=== PATIENT | male | born 1935 | race Caucasian/White ===

== ENCOUNTER 2016-09-19 09:54 | Outpatient (CLI) | END 2016-09-19 09:55 | disposition home or self-care (01) | LOC: AMBL 09:54 | PROVIDERS: ATTEND Emergency Medicine | DX: F41.9 Anxiety disorder, unspecified (principal) ==

== ENCOUNTER 2017-01-22 16:10 | Outpatient (CLI) | END 2017-01-22 16:11 | disposition home or self-care (01) | LOC: AMBL 16:10 | PROVIDERS: ATTEND Emergency Medicine | DX: R00.0 Tachycardia, unspecified (principal); Z95.0 Presence of cardiac pacemaker ==

== ENCOUNTER 2023-02-02 00:25 | Observation (INO) ==
--- NOTE | 2023-02-02 01:37 | ED.PDOC ---
General ED Provider: Dr. SHAYLA CERVANTES MD Chief Complaint: Shortness of Air Stated Complaint: CC:l Woke up with a choking episode from sleep. Had some sweat pototoe for dinner last night and this may have cause some reflux. No coughing spell after the choking episode. Check his pulse as he carries a pulse oximetry at bedside and his oxygen sat was 100% but his heart rate was 120. He felt like someone is grabbing his throat and some problem breathing. No chest pain and breathing more normal now. Had CABG in in 1987 but no recent stress test or heart cath. No exertional chest pain. 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 He is concerned that the Lp(a) is a good test for coronary event. Said he is well read on the subject. Time Seen by Provider: 02/02/23 00:54 Mode of Arrival: Walk-In Information Source: Patient Exam Limitations: No limitations Primary Care Provider: GATO FISHER MD Referred to ED by: Other (self) Nursing and Triage Documentation Reviewed and Agree: Yes Review of Systems Review Of Systems Constitutional: Reports No symptoms Eyes: Reports No symptoms Ears, Nose, Mouth, Throat: Denies Ear pain, Mouth swelling, Throat pain or Throat swelling Respiratory: Reports Shortness of Breath; Denies Cough Cardiac: Reports Palpitations; Denies Chest pain or Edema GI: Denies Abdominal pain, Vomiting or Other (Seems like acute eructation or GERD tonight) : Denies Burning Skin: Reports No symptoms Neurological: Reports No symptoms; Denies Headache All Other Systems: Reviewed and Negative [facility] Medical History Tick bite W57.XXXA - Bitten or stung by nonvenomous insect and other nonvenomous arthropods, initial encounter (ICD-10) Dysuria R30.0 - Dysuria (ICD-10) Encounter for Babb catheter removal Z46.6 - Encounter for fitting and adjustment of urinary device (ICD-10) Head injury, acute, without loss of consciousness S09.90XA - Unspecified injury of head, initial encounter (ICD-10) Subdural hematoma 09/29 [place] S06.5X9A - Traumatic subdural hemorrhage with loss of consciousness of unspecified duration, initial encounter (ICD-10) Hypertension I10 - Essential (primary) hypertension (ICD-10) Heart disease I51.9 - Heart disease, unspecified (ICD-10) Elevated cholesterol E78.00 - Pure hypercholesterolemia, unspecified (ICD-10) Family History BROTHER Diabetes 19 CHILD Diabetes Cardiac disease Social History Smoking and tobacco status: Never smoker Alcohol intake: never Substance use type: does not use Stephanie/jain: SIKH Special stephanie needs: No Agree to transfusion: Yes Adopted: No Caregiver/support person: No Foster care: No Household members: none Housing: house Marital status: W / Lives independently: Yes Daycare: no daycare Number of children: 5 Financial difficulty paying for basics: not very hard service: No penitentiary: No Current occupational status: retired History of recent travel: No Sexually active: No Do you think of yourself as: straight/heterosexual Current gender identity: male Seatbelt use: always Helmet use: No Drives intoxicated or rides with intoxicated public transit trolley driver: No Water heater temperature set < 120 degrees: Yes Working smoke detector in home: Yes Fire extinguisher in home: Yes Carbon monoxide detector in home: Yes Surgical History Hx of CABG Z95.1 - Presence of aortocoronary bypass graft (ICD-10) History of cataract surgery Z98.49 - Cataract extraction status, unspecified eye (ICD-10) 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 - Presence of aortocoronary bypass graft (ICD-10) Status post angioplasty of vein Z98.890 - Other specified postprocedural states (ICD-10) Physical Exam Physical Exam Appearance: Reports Well-appearing; Denies Ill-appearing or No pain distress Ill-appearing: None Pain Distress: None Eyes: Reports EOMI ENT: Reports Nose normal and Oropharynx normal Neck: Supple Respiratory: Reports Airway patent, Breath sounds clear and Breath sounds equal; Denies Airway obstructed Cardiovascular: Reports RRR, Pulses normal, No rub and No murmur GI/: Reports Soft, Nontender, No masses, Bowel sounds normal and No Organomegaly; Denies Tender Musculoskeletal: Reports Normal strength, ROM intact, No edema and No calf tenderness Skin: Reports Dry and Normal color Neurological: Reports Sensation intact and Motor intact Psychiatric: Reports Affect appropriate and Mood appropriate Interpretation EKG Interpretation EKG Interpretation By: ED Physician Time of EKG #1: 01:50 Rate: Normal Rhythm: Sinus Ectopy: None [place]: Left Interpretation: New inferior Q waves since July 11, 2022. EKG Comparison: Other (New Q in inferior leads ) Radiology Interpretation Radiology Interpretation By: Radiologist Radiology Results: Negative Exam Interpreted: CXR Physician Notification Case Discussed Physician Notified: Phillip Time of Notification: 02:00 Comments: OK to admit to hospitalist Physician Notified: Bharath Escobedo Time of Notification: 02:45 Comments: Discussed case and admit. Gregg wants to repeat troponin. Still negative on repeat troponin Critical Care Note Critical Care Note Total Critical Care Time (mins): 0 Course Course 02/02/23 05:30 02/02/23 02:05 Orders, Labs, Meds: Lab Review 02/02/23 02/02/23 02/02/23 02:05 03:15 03:30 WBC 5.98 RBC 4.28 L Hgb 14.0 Hct 40.8 L MCV 95.3 H MCH 32.7 H MCHC 34.3 RDW Coeff of Tal 13.6 Plt Count 131 L Immature Gran % (Auto) 0.3 Neut % (Auto) 55.2 Lymph % (Auto) 25.9 [place] % (Auto) 6.7 Eos % (Auto) 11.4 H Baso % (Auto) 0.5 Neut # (Auto) 3.3 Lymph # (Auto) 1.6 [place] # (Auto) 0.4 Eos # (Auto) 0.7 Baso # (Auto) 0.0 Immature Gran # (Auto) 0.0 Sodium 132.7 L Potassium 3.93 Chloride 99.6 Carbon Dioxide 27.2 Anion Gap 9.83 BUN 12.3 Creatinine 0.67 Estimated GFR (MDRD) 112.00 BUN/Creatinine Ratio 18.35 Glucose 99.9 Calcium 9.30 Total Bilirubin 0.97 AST 42.6 ALT 25.5 Alkaline Phosphatase 92.1 Troponin I 0.022 0.026 Total Protein 7.38 Albumin 4.35 Globulin 3.03 Albumin/Globulin Ratio 1.43 SARS CoV-2 RNA Rapid DANICA Negative Orders Category Date Time Status ADMIT OBSERVATION [PLACE PATIENT OBSERVATION] .TO ADMISSION 02/02/23 03:02 Active MEDSURG (MONITORED BED) EKG-(ED ONLY) Stat CARDIO 02/02/23 01:37 Completed ACTIVITY .BR with BRP CARE 02/02/23 03:02 Completed TELEMETRY MONITORING TELE CARE 02/02/23 03:03 Active VITAL SIGNS Q12HR CARE 02/02/23 03:04 Completed VITAL SIGNS Q8HR CARE 02/02/23 03:04 Completed CARDIAC DIET DIETARY 02/02/23 Breakfast Ordered Saline Lock [ED IV/MEDIPORT/POWERPORT] .ONCE EMERGENCY 02/02/23 03:08 Active CBC W/ AUTO DIFF DAILY@0600 LAB 02/02/23 05:30 Completed CBC W/ AUTO DIFF DAILY@0600 LAB 02/03/23 06:00 Ordered CBC W/ AUTO DIFF Stat LAB 02/02/23 02:05 Completed CMP [COMPREHENSIVE METABOLIC PANEL] Stat LAB 02/02/23 02:05 Completed COVID [SARS COV-2 RNA RAPID DANICA] Stat LAB 02/02/23 03:15 Completed MISCELLANEOUS SEND OUT Stat LAB 02/02/23 02:05 Received TROPONIN I Stat LAB 02/02/23 02:05 Completed TROPONIN I Stat LAB 02/02/23 03:30 Completed 0.9 % Sodium Chloride [Saline Flush] Meds 02/02/23 03:08 Active 1 syr IVF PRN PRN Aspirin [Aspirin EC] Meds 02/02/23 07:30 Active 325 mg PO DAILYWM2 RESUSCITATION STATUS Routine OTHERS 02/02/23 03:02 Completed CHEST, 2 VIEWS PA & LAT Stat RADS 02/02/23 01:37 Completed SEST HRT REST/STRESS/ NUC MED Routine RADS 02/02/23 03:09 Ordered PT INPATIENT EVALUATION Routine THERAPIES 02/02/23 03:04 Ordered Medications Generic Name Dose Route Start Last Admin Trade Name Freq PRN Reason Stop Dose Admin Aspirin 325 mg 02/02/23 07:30 Aspirin 325 Mg Tablet.Dr PO DAILYWM2 SANTY Sodium Chloride 1 syr 02/02/23 03:08 0.9% Sodium Chloride 10 Ml Disp.Syrin IVF PRN PRN To flush IV Vital Signs: Temp Pulse Resp BP Pulse Ox 02/02/23 00:32 98.2 F 72 15 142/77 H 96 Initial troponin negative but developed new inferior Q waves. Will admit to hospitalist, after speaking to Dr. Fisher. Discharge Plan Discharge Patient Disposition: PLACED OBSERVATION Discharge Problem: Choking episode occurring at night, Chest pain, precordial Did you review [place] CANDY ROLLER for ALL controlled substances?: Not Applicable ED Provider: SHAYLA CERVANTES Condition: Fair Physician Progress Note: []
--- NOTE | 2023-02-02 02:04 | DI ---
EXAM: FRONTAL AND LATERAL VIEWS OF THE CHEST. HISTORY: Shortness of breath. COMPARISON: Chest radiograph 07/11/2022 FINDINGS: Status post coronary bypass. Stable cardiac pacer with leads at the right atrium right ventricle, generator at the left anterior c hest wall. Normal heart size. Multifocal atherosclerotic calcifications. A few scattered calcified granulomas ar e noted. No acute consolidation. No pleural effusion or pneumothorax. No acute osseous abnormality. IMPRESSION: No acute process.
[2023-02-02 02:06] LABS: BASOPHILS % (AUTO) 0.5 % (0.0-3.0); EOSINOPHILS # (AUTO) 0.7 K/ul (0.0-0.7); EOSINOPHILS % (AUTO) 11.4 % (0.0-7.0); HEMATOCRIT 40.8 % (42.0-52.0); IMMATURE GRANULOCYTE % (AUTO) 0.3 % (0.0-5.0); LYMPHOCYTES # (AUTO) 1.6 K/uL (0.60-3.4); LYMPHOCYTES % (AUTO) 25.9 (10.0-50.0); MEAN CORPUSCULAR HEMOGLOBIN 32.7 pg (27.0-31.0); MEAN CORPUSCULAR HGB CONC 34.3 (31.8-35.4); MEAN CORPUSCULAR VOLUME 95.3 fl (80.0-94.0); MONOCYTES # (AUTO) 0.4 K/uL (0.4-2.0); MONOCYTES % (AUTO) 6.7 (0-10); NEUTROPHILS # (AUTO) 3.3 K/ul (2.0-6.9); NEUTROPHILS % (AUTO) 55.2 % (42.2-75.2); PLATELET COUNT 131 10^3/uL (140-440); RDW COEFFICIENT OF VARIATION 13.6 % (11.6-14.8); RED BLOOD COUNT 4.28 10^6/ul (4.70-6.10); WHITE BLOOD COUNT 5.98 K/ul (4.2-10.2)
[2023-02-02 02:18] LABS: ALANINE AMINOTRANSFERASE 25.5 U/L (0-50); ALBUMIN 4.35 g/dL (3.5-5.0); ALKALINE PHOSPHATASE 92.1 U/L (56-119); ASPARTATE AMINO TRANSFERASE 42.6 U/L (17-59); BILIRUBIN,TOTAL 0.97 mg/dL (0.2-1.3); BLOOD UREA NITROGEN 12.3 mg/dL (9-20); CALCIUM 9.3 mg/dL (8.4-10.2); CARBON DIOXIDE 27.2 mmol/L (22-30.0); CHLORIDE 99.6 mmol/L (98-107); CREATININE 0.67 mg/dL (0.60-1.10); GLUCOSE 99.9 mg/dL (74-106); POTASSIUM 3.93 mmol/L (3.5-5.1); SODIUM 132.7 mmol/L (134.5-145); TOTAL PROTEIN 7.38 g/dL (6.3-8.2)
[2023-02-02 03:35] LABS: SARS COV-2 RNA RAPID NAAT NEGATIVE (NEGATIVE)
[2023-02-02 05:24] VITALS: PULSE 71; RESP 16; BMI 23.1
[2023-02-02 05:27] VITALS: BP 155/73; TEMP 97.9
[2023-02-02 05:39] LABS: BASOPHILS % (AUTO) 0.5 % (0.0-3.0); EOSINOPHILS # (AUTO) 0.6 K/ul (0.0-0.7); EOSINOPHILS % (AUTO) 10.4 % (0.0-7.0); HEMATOCRIT 40.7 % (42.0-52.0); HEMOGLOBIN 14.2 g/dl (14.0-18.0); IMMATURE GRANULOCYTE % (AUTO) 0.2 % (0.0-5.0); LYMPHOCYTES # (AUTO) 1.8 K/uL (0.60-3.4); LYMPHOCYTES % (AUTO) 30.1 (10.0-50.0); MEAN CORPUSCULAR HEMOGLOBIN 33.2 pg (27.0-31.0); MEAN CORPUSCULAR HGB CONC 34.9 (31.8-35.4); MEAN CORPUSCULAR VOLUME 95.1 fl (80.0-94.0); MONOCYTES # (AUTO) 0.4 K/uL (0.4-2.0); MONOCYTES % (AUTO) 6.7 (0-10); NEUTROPHILS # (AUTO) 3.1 K/ul (2.0-6.9); NEUTROPHILS % (AUTO) 52.1 % (42.2-75.2); PLATELET COUNT 128 10^3/uL (140-440); RDW COEFFICIENT OF VARIATION 13.2 % (11.6-14.8); RED BLOOD COUNT 4.28 10^6/ul (4.70-6.10); WHITE BLOOD COUNT 5.94 K/ul (4.2-10.2)
[2023-02-02] MEDS ORDERED: ASPIRIN EC PO SCH (07:30)
[2023-02-02 08:23] LABS: ALANINE AMINOTRANSFERASE 24.6 U/L (0-50); ALBUMIN 4.21 g/dL (3.5-5.0); ALKALINE PHOSPHATASE 84.4 U/L (56-119); ASPARTATE AMINO TRANSFERASE 35.6 U/L (17-59); BILIRUBIN,TOTAL 0.95 mg/dL (0.2-1.3); BLOOD UREA NITROGEN 10.6 mg/dL (9-20); CALCIUM 9.47 mg/dL (8.4-10.2); CARBON DIOXIDE 31.2 mmol/L (22-30.0); CHLORIDE 101.7 mmol/L (98-107); CREATININE 0.65 mg/dL (0.60-1.10); GLUCOSE 95.3 mg/dL (74-106); HDL CHOLESTEROL 49.1 mg/dL (35-60); POTASSIUM 3.84 mmol/L (3.5-5.1); SODIUM 135.8 mmol/L (134.5-145); TOTAL PROTEIN 7.34 g/dL (6.3-8.2); TRIGLYCERIDES 83.4 mg/dL (0-150)
[2023-02-02 08:33] LABS: TROPONIN I 0.027 ng/ml (0.0000-0.120)
--- NOTE | 2023-02-02 10:09 | PCM.SS ---
Provider Provider[facility] HEREDIA[facility] Date Admission Date: 02/02/23 Discharge Date Discharge Date: 02/02/23 Primary Care Physician Primary Care Physician: GATO FISHER MD Chief Complaint Reason For Visit: CHEST PAIN, UNSPECIFIED History of Present Illness History of Present Illness: Admitted 02/02/23 03:31, this 87 year old /WHITE/M presented to the ER with chest pain/choking. Patient reports he has trouble with acid reflux occasionally and ate something that he shouldn't have and experienced coughing and choking on reflux secretions causing his chest to burn. Due to cardiac history, he was admitted to trend troponins and stress test. Upon exam, patient reports he has not had chest pain at all and knows that it was reflux. Does not wish to have a stress test today and plans to follow up with Dr. Katie Fisher Saturday and will schedule something with him outpatient. [facility] Medical History Tick bite W57.XXXA - Bitten or stung by nonvenomous insect and other nonvenomous arthropods, initial encounter (ICD-10) Dysuria R30.0 - Dysuria (ICD-10) Encounter for Babb catheter removal Z46.6 - Encounter for fitting and adjustment of urinary device (ICD-10) Head injury, acute, without loss of consciousness S09.90XA - Unspecified injury of head, initial encounter (ICD-10) Subdural hematoma 09/29 [place] S06.5X9A - Traumatic subdural hemorrhage with loss of consciousness of unspecified duration, initial encounter (ICD-10) Hypertension I10 - Essential (primary) hypertension (ICD-10) Heart disease I51.9 - Heart disease, unspecified (ICD-10) Elevated cholesterol E78.00 - Pure hypercholesterolemia, unspecified (ICD-10) Surgical History Hx of CABG Z95.1 - Presence of aortocoronary bypass graft (ICD-10) History of cataract surgery Z98.49 - Cataract extraction status, unspecified eye (ICD-10) 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 - Presence of aortocoronary bypass graft (ICD-10) Status post angioplasty of vein Z98.890 - Other specified postprocedural states (ICD-10) Family History BROTHER Diabetes 19 CHILD Diabetes Cardiac disease Social History Smoking and tobacco status: Never smoker Alcohol intake: never Substance use type: does not use Stephanie/jew: SABIANISM Special stephanie needs: No Agree to transfusion: Yes Adopted: No Caregiver/support person: No Foster care: No Household members: none Housing: house Marital status: W / Lives independently: Yes Daycare: no daycare Number of children: 5 Financial difficulty paying for basics: not very hard service: No alf: No Current occupational status: retired History of recent travel: No Sexually active: No Do you think of yourself as: straight/heterosexual Current gender identity: male Seatbelt use: always Helmet use: No Drives intoxicated or rides with intoxicated 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 Water heater temperature set < 120 degrees: Yes Working smoke detector in home: Yes Fire extinguisher in home: Yes Carbon monoxide detector in home: Yes Medications Mecications: Medications at Discharge (Home Meds & RX) aspirin 81 mg chewable tablet 81 mg PO .HS 04/24/22 atorvastatin 40 mg tablet See Rx Instructions .Route .COMPLEX #90 tabs 10/16/22 carvedilol 6.25 mg tablet See Rx Instructions .Route .COMPLEX #90 tabs 10/16/22 nitroglycerin 0.4 mg sublingual tablet 0.4 mg sublingual PRN PRN Angina #30 tabs 10/18/22 Allergies Allergies Allergy/AdvReac Type Severity Reaction Status Date / Time losartan AdvReac Unknown Unknown Verified 02/02/23 00:57 Review of Systems Constitutional: Reports No symptoms Head: Reports Normocephalic Eyes: Reports No symptoms Ears: Reports No symptoms Nose: Reports No symptoms Mouth: Reports No symptoms Throat: Reports No symptoms Cardiovascular: Reports No symptoms Respiratory: Reports Wake Choking at Night Gastrointestinal: Reports Reflux Genitourinary: Reports No Symptoms Musculoskeletal: Reports No symptoms Endocrine: Reports No symptoms Hematology: Reports No symptoms Immunology: Reports No symptoms Neurological: Reports No symptoms Psychiatric: Reports No symptoms Physical Examination Appearance: Positive No Apparent Distress and Alert and Oriented x3 Head: Positive Normocephalic Eyes: Positive NOMI ENT: Positive Not Examined Neck: Positive Supple and Trachea Midline Heart: Positive RRR and No Murmurs Respiratory: Positive Airway patent, Breath Sounds Clear, Bilaterally, Breath Sounds Equal and Respirations Nonlabored GI/: Positive Soft, Nontender, Bowel sounds normal and No Distention Extremities: Positive Pedal Pulses Palpable Bilaterally Neurological: Positive Normal Gait, Sensation Intact, Motor Intact, Reflexes Intact, Alert and Oriented Psychiatric: Positive Normal Judgement, Normal Insight, Affect Appropriate and Mood Appropriate Vital Signs (Last 4 Hours) Vital Signs Last 4 Hours: Vital Signs: Last 4 Hours 02/02/23 07:00 02/02/23 07:00 02/02/23 07:45 Oxygen Delivery Method Room Air Room Air Telemetry Type Remote Telemetry Telemetry Monitoring Continues Telemetry Heart Rate 67 EKG DC Interval 0.18 EKG QRS Interval 0.16 H Telemetry Strip Reading SR with BBB and PVC 02/02/23 08:00 02/02/23 08:00 02/02/23 09:00 Oxygen Delivery Method Room Air Room Air Room Air Telemetry Type Telemetry Monitoring Telemetry Heart Rate EKG DC Interval EKG QRS Interval Telemetry Strip Reading Labs This Visit Labs This Visit: Labs This Visit 02/02/23 02/02/23 02/02/23 02:05 03:15 03:30 WBC 5.98 RBC 4.28 L Hgb 14.0 Hct 40.8 L MCV 95.3 H MCH 32.7 H MCHC 34.3 RDW Coeff of Tal 13.6 Plt Count 131 L Immature Gran % (Auto) 0.3 Neut % (Auto) 55.2 Lymph % (Auto) 25.9 [place] % (Auto) 6.7 Eos % (Auto) 11.4 H Baso % (Auto) 0.5 Neut # (Auto) 3.3 Lymph # (Auto) 1.6 [place] # (Auto) 0.4 Eos # (Auto) 0.7 Baso # (Auto) 0.0 Immature Gran # (Auto) 0.0 Sodium 132.7 L Potassium 3.93 Chloride 99.6 Carbon Dioxide 27.2 Anion Gap 9.83 BUN 12.3 Creatinine 0.67 Estimated GFR (MDRD) 112.00 BUN/Creatinine Ratio 18.35 Glucose 99.9 Calcium 9.30 Total Bilirubin 0.97 AST 42.6 ALT 25.5 Alkaline Phosphatase 92.1 Troponin I 0.022 0.026 Total Protein 7.38 Albumin 4.35 Globulin 3.03 Albumin/Globulin Ratio 1.43 Triglycerides Cholesterol LDL Cholesterol, Calc VLDL Cholesterol HDL Cholesterol Cholesterol/HDL Ratio SARS CoV-2 RNA Rapid DANICA Negative 02/02/23 02/02/23 05:30 05:50 WBC 5.94 RBC 4.28 L Hgb 14.2 Hct 40.7 L MCV 95.1 H MCH 33.2 H MCHC 34.9 RDW Coeff of Tal 13.2 Plt Count 128 L Immature Gran % (Auto) 0.2 Neut % (Auto) 52.1 Lymph % (Auto) 30.1 [place] % (Auto) 6.7 Eos % (Auto) 10.4 H Baso % (Auto) 0.5 Neut # (Auto) 3.1 Lymph # (Auto) 1.8 [place] # (Auto) 0.4 Eos # (Auto) 0.6 Baso # (Auto) 0.0 Immature Gran # (Auto) 0.0 Sodium 135.8 Potassium 3.84 Chloride 101.7 Carbon Dioxide 31.2 H Anion Gap 6.74 BUN 10.6 Creatinine 0.65 Estimated GFR (MDRD) 116.00 BUN/Creatinine Ratio 16.30 Glucose 95.3 Calcium 9.47 Total Bilirubin 0.95 AST 35.6 ALT 24.6 Alkaline Phosphatase 84.4 Troponin I 0.027 Total Protein 7.34 Albumin 4.21 Globulin 3.13 Albumin/Globulin Ratio 1.34 Triglycerides 83.4 Cholesterol 127.0 LDL Cholesterol, Calc 61 VLDL Cholesterol 17 HDL Cholesterol 49.1 Cholesterol/HDL Ratio 2.6 L SARS CoV-2 RNA Rapid DANICA Review Review Statement: I have independently reviewed and interpreted the labs/EKGs/imaging that were ordered by the ER provider. I have reviewed all outside records that are available currently in our EMR including imaging/notes/labs from previous visits. Plan Reccomendations/Plan: 1. Chest pain - serial troponins, planned to stress and echo - patient refused, has nitro prescribed prn at home. Follow-up with Dr. Katie Fisher Saturday. Lipid panel checked and within normal limits All home medications continued. No changes made. Additional Planning: Case discussed with ED Physician, Dr. Basurto. DVT Prophylaxis: Up ad aury Disposition: Admit to: Med/surg Observation Discussed Plan of Care with Dr. Tona Fisher. Full Code If patient discharged with Left Ventricular Systolic Dysfunction: NA Discharged with a beta ana? [] If no, why not? [] Discharged with an keith/arb? [] If no, why not? [] DX: GERD Cardiac diet Activity as tolerated Follow-up with PCP Saturday Review With Patient Reviewed with Patient and Family: Patient and family have been counseled on condition and care plan and have no immediate questions. I have personally discussed and reviewed the patient's visit/current labs/imaging/decision making with Dr. Isaura Fisher, my supervising attending. Total number of minutes spent with patient 85 min. More than 50% of the time spent with this patient was devoted to counseling and coordination of care. Time of Admission:02/02/23 03:31 Time of Discharge: 02/02/23 09:15 Discharge Plan Discharge Discharge Orders: Discharge Patient (ONCE); Ordered 02/02/23 Ordered By: CLEMENTINE AYALA Activity Restrictions/Additional Instructions: Discharge Home today Cardiac Diet Activity as tolerated Follow-up with Dr. Fisher next week. Office phone number is [phone] No medication changes. Go to the Emergency Room as needed if you have chest pain or discomfort that is not relieved by rest or medication. Instructions: Chest Pain (GEN), GERD (Gastroesophageal Reflux Disease) (GEN) Care Plan Goals: Problem: Alteration in Comfort/Pain Goal: Manage pain at a tolerable level Instructions: Monitor character, location and intensity Express expectations of pain relief Pain medication as ordered Position for maximal comfort Pain management prior to activities Patient Disposition: HOME WITH FAMILY CARE Prescriptions: Continued atorvastatin 40 mg tablet See Rx Instructions .ROUTE .COMPLEX Qty: 90 1RF Dose Instruction: TAKE 1 TABLET BY MOUTH ONCE DAILY AT BEDTIME Rx Instructions: TAKE 1 TABLET BY MOUTH ONCE DAILY AT BEDTIME carvedilol 6.25 mg tablet See Rx Instructions .ROUTE .COMPLEX Qty: 90 1RF Dose Instruction: Take 1 tablet by mouth once daily Rx Instructions: Take 1 tablet by mouth once daily nitroglycerin 0.4 mg tablet, sublingual 0.4 mg sublingual PRN PRN (Reason: Angina) Qty: 30 2RF aspirin 81 mg tablet,chewable 81 mg PO .HS Did you review [place] SUSTAIN[employer] PROJECT MANAGER for ALL controlled substances?: No Discussed opioids are addictive and Narcan is available by prescription or from pharmacy.: No Condition: Fair
== END 2023-02-02 09:55 | disposition home or self-care (01) ==
LOC: ED 00:25 → MEDSURG B 00:25
PROVIDERS: ADMIT Hospitalist; ATTEND Nurse Practitioner Family
DX: Z51.81 Encounter for therapeutic drug level monitoring; R07.9 Chest pain, unspecified; Z20.822 Contact with and (suspected) exposure to COVID-19; Z95.1 Presence of aortocoronary bypass graft; R09.89 Other specified symptoms and signs involving the circulatory and respiratory systems; Z79.899 Other long term (current) drug therapy; K21.9 Gastro-esophageal reflux disease without esophagitis